=== PATIENT | male | born 1965 | race Caucasian/White ===

== ENCOUNTER → 2016-12-04 | Outpatient (CLI) | payer BC, MEDICARE | LOC: LAB 12:29 | DX: Z51.81 Encounter for therapeutic drug level monitoring (principal); I48.0 Paroxysmal atrial fibrillation; Z79.01 Long term (current) use of anticoagulants | CPT/HCPCS: 36415; 85610 ==

== ENCOUNTER → 2016-12-10 | Outpatient (CLI) | payer BC, MEDICARE | LOC: LAB 11:35 | DX: Z51.81 Encounter for therapeutic drug level monitoring (principal); Z79.01 Long term (current) use of anticoagulants; I48.0 Paroxysmal atrial fibrillation | CPT/HCPCS: 36415; 85610 ==

== ENCOUNTER → 2016-12-25 | Outpatient (CLI) | payer BC, MEDICARE | LOC: LAB 09:42 | DX: Z51.81 Encounter for therapeutic drug level monitoring (principal); I48.0 Paroxysmal atrial fibrillation; Z79.01 Long term (current) use of anticoagulants | CPT/HCPCS: 36415; 85610 ==

== ENCOUNTER → 2017-01-05 | Outpatient (CLI) | payer BC, MEDICARE | LOC: LAB 08:24 | DX: E78.00 Pure hypercholesterolemia, unspecified (principal) | CPT/HCPCS: 36415; 80061; 80076 ==

== ENCOUNTER → 2017-01-08 | Outpatient (CLI) | payer BC, MEDICARE | LOC: LAB 15:03 | DX: Z51.81 Encounter for therapeutic drug level monitoring (principal); I48.0 Paroxysmal atrial fibrillation; Z79.01 Long term (current) use of anticoagulants | CPT/HCPCS: 36415; 85610 ==

== ENCOUNTER → 2017-01-21 | Outpatient (CLI) | payer BC, MEDICARE | LOC: LAB 14:32 | DX: I48.0 Paroxysmal atrial fibrillation (principal) | CPT/HCPCS: 36415; 85610 ==

== ENCOUNTER → 2017-01-28 | Outpatient (CLI) | payer BC, MEDICARE | LOC: LAB 14:50 | DX: Z51.81 Encounter for therapeutic drug level monitoring (principal); Z79.01 Long term (current) use of anticoagulants; I48.0 Paroxysmal atrial fibrillation | CPT/HCPCS: 36415; 85610 ==

== ENCOUNTER → 2017-02-04 | Outpatient (CLI) | payer BC, MEDICARE | LOC: LAB 13:57 | DX: Z51.81 Encounter for therapeutic drug level monitoring (principal); I48.0 Paroxysmal atrial fibrillation | CPT/HCPCS: 36415; 85610 ==

== ENCOUNTER → 2017-03-05 | Outpatient (CLI) | payer BC, MEDICARE | LOC: LAB 11:36 | DX: Z51.81 Encounter for therapeutic drug level monitoring (principal); I48.91 Unspecified atrial fibrillation; Z79.01 Long term (current) use of anticoagulants | CPT/HCPCS: 36415; 85610 ==

== ENCOUNTER → 2020-10-09 | Outpatient (CLI) | payer BC, MEDICARE | LOC: LAB 10:33 | DX: R79.1 Abnormal coagulation profile (principal) | CPT/HCPCS: 36415; 85610 ==

== ENCOUNTER → 2020-10-16 | Outpatient (CLI) | payer BC, MEDICARE | LOC: LAB 11:32 | DX: R79.1 Abnormal coagulation profile (principal) | CPT/HCPCS: 36415; 85610 ==

== ENCOUNTER → 2020-11-14 | Outpatient (CLI) | payer BC, MEDICARE | LOC: LAB 10:33 | DX: I48.0 Paroxysmal atrial fibrillation (principal) | CPT/HCPCS: 36415; 85610 ==

== ENCOUNTER → 2020-12-14 | Outpatient (CLI) | payer BC, MEDICARE | LOC: LAB 11:18 | DX: I48.0 Paroxysmal atrial fibrillation (principal) | CPT/HCPCS: 36415; 85610 ==

== ENCOUNTER → 2020-12-24 | Outpatient (CLI) | payer BC, MEDICARE | LOC: LAB 11:17 | DX: I48.0 Paroxysmal atrial fibrillation (principal) | CPT/HCPCS: 36415; 85610 ==

== ENCOUNTER → 2021-01-08 | Outpatient (CLI) | payer BC, MEDICARE | LOC: LAB 13:08 | DX: I48.0 Paroxysmal atrial fibrillation (principal) | CPT/HCPCS: 36415; 85610 ==

== ENCOUNTER → 2021-02-06 | Outpatient (CLI) | payer BC, MEDICARE | LOC: LAB 11:47 | DX: I48.0 Paroxysmal atrial fibrillation (principal) | CPT/HCPCS: 85610 ==

== ENCOUNTER → 2021-02-13 | Outpatient (CLI) | payer BC, MEDICARE | LOC: LAB 14:26 | DX: I48.0 Paroxysmal atrial fibrillation (principal) | CPT/HCPCS: 85610 ==

== ENCOUNTER → 2021-03-06 | Outpatient (CLI) | payer BC, MEDICARE | LOC: LAB 12:30 | DX: Z51.81 Encounter for therapeutic drug level monitoring (principal); I48.0 Paroxysmal atrial fibrillation | CPT/HCPCS: 36415; 85610 ==

== ENCOUNTER → 2021-04-04 | Outpatient (CLI) | payer BC, MEDICARE | LOC: LAB 14:46 | DX: Z51.81 Encounter for therapeutic drug level monitoring (principal); I48.0 Paroxysmal atrial fibrillation | CPT/HCPCS: 36415; 85610 ==

== ENCOUNTER → 2021-04-12 | Outpatient (CLI) | payer BC, MEDICARE | LOC: LAB 11:27 | DX: Z51.81 Encounter for therapeutic drug level monitoring (principal); I48.0 Paroxysmal atrial fibrillation | CPT/HCPCS: 36415; 85610 ==

== ENCOUNTER → 2021-04-19 | Outpatient (CLI) | payer BC, MEDICARE | LOC: LAB 12:17 | DX: Z51.81 Encounter for therapeutic drug level monitoring (principal); I48.0 Paroxysmal atrial fibrillation; Z79.899 Other long term (current) drug therapy | CPT/HCPCS: 36415; 85610 ==

== ENCOUNTER → 2021-05-20 | Outpatient (CLI) | payer BC, MEDICARE | LOC: LAB 14:02 | DX: Z51.81 Encounter for therapeutic drug level monitoring (principal); I48.0 Paroxysmal atrial fibrillation | CPT/HCPCS: 36415; 85610 ==

== ENCOUNTER → 2021-06-25 | Outpatient (CLI) | payer BC, MEDICARE | LOC: LAB 12:21 | DX: Z51.81 Encounter for therapeutic drug level monitoring (principal); I48.91 Unspecified atrial fibrillation | CPT/HCPCS: 36415; 85610 ==

== ENCOUNTER → 2021-07-03 | Outpatient (CLI) | payer BC, MEDICARE | LOC: LAB 14:16 | DX: Z51.81 Encounter for therapeutic drug level monitoring (principal); I48.0 Paroxysmal atrial fibrillation | CPT/HCPCS: 36415; 85610 ==

== ENCOUNTER → 2021-07-04 | Outpatient (CLI) | payer BC, MEDICARE | LOC: LAB 12:40 | DX: Z51.81 Encounter for therapeutic drug level monitoring (principal); I48.0 Paroxysmal atrial fibrillation | CPT/HCPCS: 36415; 85610 ==

== ENCOUNTER → 2021-09-17 | Outpatient (CLI) | payer BC, MEDICARE | LOC: LAB 09:41 | DX: Z51.81 Encounter for therapeutic drug level monitoring (principal); I48.0 Paroxysmal atrial fibrillation | CPT/HCPCS: 36415; 85610 ==

== ENCOUNTER → 2021-09-25 | Outpatient (CLI) | payer BC, MEDICARE | LOC: LAB 12:38 | DX: Z51.81 Encounter for therapeutic drug level monitoring (principal); I48.0 Paroxysmal atrial fibrillation | CPT/HCPCS: 36415; 85610 ==

== ENCOUNTER → 2021-10-02 | Outpatient (CLI) | payer BC, MEDICARE | LOC: LAB 10:59 | DX: Z51.81 Encounter for therapeutic drug level monitoring (principal); I48.0 Paroxysmal atrial fibrillation | CPT/HCPCS: 36415; 85610 ==

== ENCOUNTER → 2021-10-09 | Outpatient (CLI) | payer BC, MEDICARE ==
[2021-10-09 11:23] LABS: HEMOGLOBIN 15.1 gm/dl (14.0-17.5); RED BLOOD COUNT 4.9 M/UL (4.20-5.50); WHITE BLOOD COUNT 6.6 K/UL (4.5-11.0)
== END ==
LOC: LAB 10:57
PROVIDERS: Internal Medicine
DX: Z51.81 Encounter for therapeutic drug level monitoring (principal); I48.0 Paroxysmal atrial fibrillation; I50.22 Chronic systolic (congestive) heart failure
CPT/HCPCS: 36415; 85025; 85610

== ENCOUNTER → 2021-11-07 | Outpatient (CLI) | payer BC, MEDICARE | LOC: LAB 10:59 | DX: Z51.81 Encounter for therapeutic drug level monitoring (principal); I48.0 Paroxysmal atrial fibrillation | CPT/HCPCS: 36415; 85610 ==

== ENCOUNTER → 2021-11-14 | Outpatient (CLI) | payer BC, MEDICARE | LOC: LAB 11:41 | DX: Z51.81 Encounter for therapeutic drug level monitoring (principal); I48.0 Paroxysmal atrial fibrillation | CPT/HCPCS: 85610 ==

== ENCOUNTER → 2021-11-22 | Outpatient (CLI) | payer BC, MEDICARE | LOC: LAB 11:22 | DX: I48.0 Paroxysmal atrial fibrillation (principal) | CPT/HCPCS: 36415; 85610 ==

== ENCOUNTER → 2022-01-13 | Outpatient (CLI) | payer BC, MEDICARE | LOC: LAB 10:03 | DX: Z51.81 Encounter for therapeutic drug level monitoring (principal); I48.0 Paroxysmal atrial fibrillation | CPT/HCPCS: 36415; 85610 ==

== ENCOUNTER → 2022-01-20 | Outpatient (CLI) | payer BC, MEDICARE | LOC: LAB 13:25 | DX: Z51.81 Encounter for therapeutic drug level monitoring (principal); I48.0 Paroxysmal atrial fibrillation | CPT/HCPCS: 36415; 85610 ==

== ENCOUNTER → 2022-02-18 | Outpatient (CLI) | payer BC, MEDICARE | LOC: ECHO 11:15 | DX: I50.22 Chronic systolic (congestive) heart failure (principal); I08.3 Combined rheumatic disorders of mitral, aortic and tricuspid valves | CPT/HCPCS: ECHO; 93306 ==

== ENCOUNTER → 2022-03-03 | Outpatient (CLI) | payer BC, MEDICARE | LOC: LAB 12:16 | DX: Z51.81 Encounter for therapeutic drug level monitoring (principal); I48.0 Paroxysmal atrial fibrillation | CPT/HCPCS: 36415; 85610 ==

== ENCOUNTER → 2022-03-14 | Outpatient (CLI) | payer BC, MEDICARE | LOC: LAB 11:50 | DX: Z51.81 Encounter for therapeutic drug level monitoring (principal); I48.0 Paroxysmal atrial fibrillation | CPT/HCPCS: 36415; 85610 ==

== ENCOUNTER → 2022-05-15 | Outpatient (CLI) | payer BC, MEDICARE | LOC: LAB 08:48 | DX: Z51.81 Encounter for therapeutic drug level monitoring (principal); I48.0 Paroxysmal atrial fibrillation | CPT/HCPCS: 36415; 85610 ==

== ENCOUNTER → 2022-06-13 | Outpatient (CLI) | payer BC, MEDICARE | LOC: LAB 09:11 | DX: Z51.81 Encounter for therapeutic drug level monitoring (principal); I48.0 Paroxysmal atrial fibrillation | CPT/HCPCS: 36415; 85610 ==